=== PATIENT | male | born 1940 | race Caucasian/White ===

== ENCOUNTER → 2019-07-29 14:18 | Outpatient (BNVA) | payer MEDICARE, OTHER, SELFPAY | PROVIDERS: Family Provider Family Medicine; PCP Family Medicine; Visit Provider Urology | DX: R97.20 Elevated prostate specific antigen [PSA] (principal); N40.0 Benign prostatic hyperplasia without lower urinary tract symptoms; N39.9 Disorder of urinary system, unspecified; R33.9 Retention of urine, unspecified | CPT/HCPCS: 81001; 84153 ==

== ENCOUNTER → 2019-11-03 13:40 | Outpatient (BNVA) | payer MEDICARE, SELFPAY | PROVIDERS: Family Provider Family Medicine; PCP Family Medicine; Visit Provider Nurse Practitioner Family | DX: R97.20 Elevated prostate specific antigen [PSA] (principal); R33.9 Retention of urine, unspecified | CPT/HCPCS: 81001; 84153 ==

== ENCOUNTER 2019-12-16 09:04 | Outpatient (CLI) | payer MEDICARE, SELFPAY | END 2019-12-16 09:05 | disposition home or self-care (01) | LOC: LAB 09:10 | PROVIDERS: PCP Family Medicine; Visit Provider Urology | DX: R97.20 Elevated prostate specific antigen [PSA] (principal) | CPT/HCPCS: 36415; 81003; 84153 ==

== ENCOUNTER → 2020-03-17 10:59 | Outpatient (BNVA) | payer OTHER, SELFPAY | PROVIDERS: PCP Family Medicine; Visit Provider Urology | DX: R33.9 Retention of urine, unspecified (principal); R97.20 Elevated prostate specific antigen [PSA]; N40.2 Nodular prostate without lower urinary tract symptoms; N30.90 Cystitis, unspecified without hematuria | CPT/HCPCS: 81003 ==

== ENCOUNTER 2020-06-28 20:00 | Outpatient (CLI) | payer OTHER, SELFPAY | END 2020-06-28 20:01 | disposition home or self-care (01) | LOC: SLEEP 06-29 11:13 | PROVIDERS: PCP Family Medicine; Visit Provider Family Medicine | DX: G47.33 Obstructive sleep apnea (adult) (pediatric) (principal) | CPT/HCPCS: 95810 ==

== ENCOUNTER → 2020-07-13 09:57 | Outpatient (BNVA) | payer OTHER, SELFPAY | PROVIDERS: PCP Family Medicine; Visit Provider Urology | DX: R97.20 Elevated prostate specific antigen [PSA] (principal) | CPT/HCPCS: 84153 ==

== ENCOUNTER → 2020-11-21 08:37 | Outpatient (BNVA) | payer OTHER, SELFPAY | PROVIDERS: PCP Student in an Organized Health Care Education/Training Program; Referring Provider Emergency Medicine Emergency Medical Services; Visit Provider Internal Medicine | DX: E11.59 Type 2 diabetes mellitus with other circulatory complications (principal); E11.22 Type 2 diabetes mellitus with diabetic chronic kidney disease; N18.30 Chronic kidney disease, stage 3 unspecified; I25.10 Atherosclerotic heart disease of native coronary artery without angina pectoris; Z79.4 Long term (current) use of insulin; I12.9 Hypertensive chronic kidney disease with stage 1 through stage 4 chronic kidney disease, or unspecified chronic kidney disease; Z87.891 Personal history of nicotine dependence | CPT/HCPCS: 99204 ==

== ENCOUNTER 2020-11-24 10:25 | Outpatient (CLI) | payer OTHER, MEDICARE, SELFPAY | END 2020-11-24 10:26 | disposition home or self-care (01) | LOC: LAB 06-27 12:31 | PROVIDERS: PCP Student in an Organized Health Care Education/Training Program; Visit Provider Urology | DX: R97.20 Elevated prostate specific antigen [PSA] (principal) | CPT/HCPCS: 81003 ==

== ENCOUNTER 2021-06-27 11:55 | Outpatient (CLI) | payer OTHER, MEDICARE, SELFPAY | END 2021-06-27 11:56 | disposition home or self-care (01) | LOC: LAB 12:01 | PROVIDERS: PCP Student in an Organized Health Care Education/Training Program; Visit Provider Urology | DX: R97.20 Elevated prostate specific antigen [PSA] (principal); R33.9 Retention of urine, unspecified; N40.2 Nodular prostate without lower urinary tract symptoms; E11.59 Type 2 diabetes mellitus with other circulatory complications; I25.10 Atherosclerotic heart disease of native coronary artery without angina pectoris; E11.9 Type 2 diabetes mellitus without complications | CPT/HCPCS: 81003; 84153; 99214 ==

== ENCOUNTER 2021-10-05 10:19 | Outpatient (CLI) | payer OTHER, MEDICARE, SELFPAY | END 2021-10-05 10:20 | disposition home or self-care (01) | LOC: LAB 10:24 | PROVIDERS: PCP Student in an Organized Health Care Education/Training Program; Visit Provider Urology | DX: R97.20 Elevated prostate specific antigen [PSA] (principal); N39.0 Urinary tract infection, site not specified; R33.9 Retention of urine, unspecified; Z80.42 Family history of malignant neoplasm of prostate; E11.59 Type 2 diabetes mellitus with other circulatory complications; E11.22 Type 2 diabetes mellitus with diabetic chronic kidney disease; N18.30 Chronic kidney disease, stage 3 unspecified; I25.10 Atherosclerotic heart disease of native coronary artery without angina pectoris; Z79.4 Long term (current) use of insulin | CPT/HCPCS: 36415; 81003; 84153; 99213; 99214 ==

== ENCOUNTER → 2021-11-08 13:09 | Outpatient (BNVA) | payer OTHER, SELFPAY | PROVIDERS: PCP Student in an Organized Health Care Education/Training Program; Visit Provider Internal Medicine | DX: E11.9 Type 2 diabetes mellitus without complications (principal); E78.2 Mixed hyperlipidemia; Z79.4 Long term (current) use of insulin | CPT/HCPCS: 99214 ==

== ENCOUNTER 2022-02-19 12:39 | Outpatient (CLI) | payer OTHER, SELFPAY ==
[2022-02-19 13:46] LABS: Prostate Specific AG Urology 42.26 ng/mL (0-4)
== END 2022-02-19 12:40 | disposition home or self-care (01) ==
PROVIDERS: Urology; Visit Provider Nurse Practitioner Family
DX: R97.20 Elevated prostate specific antigen [PSA] (principal); N39.0 Urinary tract infection, site not specified; Z80.42 Family history of malignant neoplasm of prostate
CPT/HCPCS: 81003; 84153; 99214

== ENCOUNTER → 2022-03-02 09:37 | Outpatient (BNVA) | payer OTHER, SELFPAY | PROVIDERS: Visit Provider Urology | DX: R97.20 Elevated prostate specific antigen [PSA] (principal) | CPT/HCPCS: 55700; 76872; 76942; 88305; 96372 ==

== ENCOUNTER → 2022-03-09 10:34 | Outpatient (BNVA) | payer OTHER, SELFPAY | PROVIDERS: Visit Provider Internal Medicine | DX: E11.59 Type 2 diabetes mellitus with other circulatory complications (principal); I25.10 Atherosclerotic heart disease of native coronary artery without angina pectoris; N39.0 Urinary tract infection, site not specified; E78.2 Mixed hyperlipidemia; Z79.4 Long term (current) use of insulin | CPT/HCPCS: 99214 ==

== ENCOUNTER 2022-04-03 07:25 | Outpatient (CLI) | payer OTHER, SELFPAY ==
--- NOTE | 2022-04-03 07:35 | NM_ITS ---
WS: [id number] NUCLEAR MEDICINE BONE SCAN Radiopharmaceutical: 25.2 Tc-99m MDP mCi IV Injection site: AC Postinjection imaging delay: 1 hr CLINICAL INFORMATION: EQUITY RESEARCH ASSOCIATE COMPARISON: None. FINDINGS: Bone lesions: Punctate focus of increased activity involving the LEFT proximal humeral neck. No other suspicious foci of uptake. Soft tissue contours: Normal. Kidneys: Normal. 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 Degenerative arthr itis both knees. Mild thoracolumbar curve. NM/NM bone scan whole body* [id number] IMPRESSION: 1. Punctate focus of increased activity involving the LEFT proximal humeral ne ck. This may be degenerative but is indeterminate and metastatic disease not en tirely excluded. Recommend 3-6 month interval follow-up. 2. No other suspicious findings.
[2022-04-03] MEDS: iohexol 350 mg/mL 500 mL Btl (per mL) IV (07:52)
[2022-04-03 08:32] LABS: Blood Urea Nitrogen 25 mg/dL (8-23)
--- NOTE | 2022-04-03 09:15 | CT_ITS ---
WS: [id number] CT ABDOMEN PELVIS TECHNIQUE: Noncontrast CT of the abdomen and contrast-enhanced CT of the abdomen and pelvis with gisela nal and sagittal reformatted images. CLINICAL INFORMATION: PROSTATE CANCER COMPARISON: Outside CT December 07, 2021 DLP: 1562.[address] scans at [facility] use at least one of these dose optimization techniques: automated e xposure control; mA and/or kV adjustment per patient size (includes targeted exams where dose is matc hed to clinical indication); or iterative reconstruction. FINDINGS: Enlarged heterogeneously enhancing nodular prostate suspicious for neoplasia measuring 5.4 x 5.6 cm w ith indentation on the bladder. Bladder wall thickening compatible with bladder outlet obstruction. E nlarged eccentric LEFT diverticulum measuring 7.9 x 2.7 CM. Enlarged LEFT periprostatic lymph node me asuring 6 mm. Slight prominent presacral lymph noted measuring 5 mm. Prominent LEFT periaortic lymph nodes 2 largest measuring 13 mm. Additional shotty periaortic lymph nodes. Round atelectasis RIGHT lower lobe is unchanged from December 07, 2021. Lung bases are otherwise well aerated. Normal GE junction. Diffuse fatty infiltration liver. Cholecystectomy. Normal portal vein an d splenic vein. Fatty atrophy of the pancreas. Normal spleen. Dense aortic calcification. IVC filter. Tiny fat-containing LEFT inguinal hernia. Sigmoid diverticulosis. No evidence of acute diverticuliti s. Normal appendix in the RIGHT lower quadrant. Retroaortic LEFT renal vein. IVC filter. Anterior wed ging L1 with kyphoplasty changes. Ankylosis lower thoracic and lumbar spine. Normal renal parenchymal enhancement. RIGHT renal atrophy. Tiny renal cysts. Peripelvic cysts. Adrena l glands are normal. CT/CT abdomen pelvis wo/w [id number] IMPRESSION: 1. Enlarged heterogeneously enhancing nodular prostate suspicious for neoplasm . Thickening of the seminal vesicles bilaterally. 2. Bladder indentation with evidence of bladder outlet obstruction. 3. 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 4. Mild thickening of the seminal vesicles bilaterally. 5. Prominent LEFT periprostatic lymph node measuring 6 mm. Slight prominent pr esacral lymph noted measuring 5 mm. Enlarged LEFT periaortic lymph nodes 2 larg est measuring 13 mm. Additional shotty periaortic lymph nodes. 6. Diffuse fatty infiltration liver. Round atelectasis RIGHT lower lobe. 7. Atrophic RIGHT kidney. 8. IVC filter. 9. No other acute findings.
== END 2022-04-03 07:26 | disposition home or self-care (01) ==
LOC: RAD 07:29
PROVIDERS: Visit Provider Urology
DX: C61 Malignant neoplasm of prostate (principal); N32.3 Diverticulum of bladder; K76.0 Fatty (change of) liver, not elsewhere classified; J98.11 Atelectasis; N26.1 Atrophy of kidney (terminal)
CPT/HCPCS: 74178; 78306; 82565; 84520; A9561; Q9967

== ENCOUNTER → 2022-04-04 12:03 | Outpatient (BNVA) | payer OTHER, SELFPAY | PROVIDERS: PCP Family Medicine; Visit Provider Urology | DX: R33.9 Retention of urine, unspecified (principal); C61 Malignant neoplasm of prostate | CPT/HCPCS: 99214 ==

== ENCOUNTER 2022-04-09 07:51 | Oncology outpatient (recurring) (ONCR) | payer OTHER, SELFPAY | END 2022-04-10 23:59 | disposition home or self-care (01) | PROVIDERS: Absent Provider Radiology Radiation Oncology; PCP Family Medicine; Visit Provider Internal Medicine Hematology & Oncology | DX: C61 Malignant neoplasm of prostate (principal); N40.2 Nodular prostate without lower urinary tract symptoms; N13.8 Other obstructive and reflux uropathy; Z80.42 Family history of malignant neoplasm of prostate | CPT/HCPCS: 99204 ==

== ENCOUNTER 2022-05-01 09:28 | Oncology outpatient (recurring) (ONCR) | payer OTHER, SELFPAY ==
[2022-05-01 10:10] LABS: Basophils # 0.1 10^3/uL (0.0-0.1); Basophils % 1.1 %; Eosinophils # 0.2 10^3/uL (0.0-0.8); Eosinophils % 4.5 %; Hematocrit 44.6 % (42.0-52.0); Hemoglobin 14.8 g/dL (11.7-16.6); Lymphocytes # 1.5 10^3/uL (0.8-4.8); Lymphocytes % 27.8 %; Mean Corpuscular HGB Conc 33.2 g/dL (30.0-36.0); Mean Corpuscular Volume 93.3 fl (80-94); Mean Platelet Volume 9.8 fL (7.4-10.4); Monocytes # 0.5 10^3/uL (0.2-0.9); Monocytes % 8.8 %; Neutrophils # 3.09 10^3/uL (1.8-7.7); Neutrophils % 57.6 %; Nucleated Red Blood Cells % 0 %; Platelet Count 203 10^3/cmm (130-400); Red Blood Count 4.78 10^6/uL (4.1-5.3); Red Cell Distribution Width 12.5 % (12.1-15.1); White Blood Count 5.4 10^3/uL (4.0-10.0)
[2022-05-01 10:41] LABS: Alanine Aminotransferase 22 U/L (0-41); Alkaline Phosphatase 37 U/L (40-130); Anion Gap 16.6 (5-19); Aspartate Amino Transferase 19 U/L (0-40); Blood Urea Nitrogen 38 mg/dL (8-23); Calcium 9.3 mg/dL (8.5-10.5); Carbon Dioxide 23 mmol/L (22-29); Chloride 105 mmol/L (98-107); Glucose 173 mg/dL (65-115); Osmolality Calculated 303 mOsm/kg (285-295); Potassium 4.6 mmol/L (3.5-5.1); Sodium 140 mmol/L (136-145); Testosterone Total 172.6 ng/dL (193-740); Total Bilirubin 0.4 mg/dL (0.15-1.2)
== END 2022-05-11 23:59 | disposition home or self-care (01) ==
PROVIDERS: Absent Provider Radiology Radiation Oncology; PCP Family Medicine; Visit Provider Internal Medicine Hematology & Oncology
DX: C61 Malignant neoplasm of prostate; C77.8 Secondary and unspecified malignant neoplasm of lymph nodes of multiple regions; C79.51 Secondary malignant neoplasm of bone; R91.1 Solitary pulmonary nodule; Z79.818 Long term (current) use of other agents affecting estrogen receptors and estrogen levels; Z79.899 Other long term (current) drug therapy; Z87.891 Personal history of nicotine dependence
CPT/HCPCS: 36415; 80053; 84153; 84403; 85025; 99214

== ENCOUNTER 2022-05-21 14:18 | Oncology outpatient (recurring) (ONCR) | payer OTHER, SELFPAY ==
[2022-05-21] MEDS: leuprolide 22.5 mg Kit IM (14:44)
[2022-05-21] MEDS: denosumab 120 mg SDV SUBCUT (14:44)
[2022-05-21 15:00] VITALS: BP 116/65; PULSE 68; RESP 18; TEMP 36.8; O2SAT 99
== END 2022-06-10 23:59 | disposition home or self-care (01) ==
PROVIDERS: Absent Provider Radiology Radiation Oncology; PCP Family Medicine; Visit Provider Internal Medicine Hematology & Oncology
DX: C61 Malignant neoplasm of prostate (principal); Z51.11 Encounter for antineoplastic chemotherapy
CPT/HCPCS: 96372; 96402; J0897; J9217

== ENCOUNTER 2022-06-19 11:29 | Oncology outpatient (recurring) (ONCR) | payer OTHER, SELFPAY ==
[2022-06-19 12:21] LABS: Basophils # 0.1 10^3/uL (0.0-0.1); Eosinophils # 0.4 10^3/uL (0.0-0.8); Eosinophils % 8.4 %; Hematocrit 41.9 % (42.0-52.0); Lymphocytes # 1.3 10^3/uL (0.8-4.8); Lymphocytes % 26.8 %; Mean Corpuscular HGB Conc 33.4 g/dL (30.0-36.0); Mean Corpuscular Hemoglobin 31.3 pg (28.0-34.0); Mean Corpuscular Volume 93.7 fl (80-94); Mean Platelet Volume 9.7 fL (7.4-10.4); Monocytes # 0.6 10^3/uL (0.2-0.9); Monocytes % 12.3 %; Neutrophils # 2.44 10^3/uL (1.8-7.7); Neutrophils % 51.1 %; Nucleated Red Blood Cells % 0 %; Platelet Count 161 10^3/cmm (130-400); Red Blood Count 4.47 10^6/uL (4.1-5.3); Red Cell Distribution Width 12.2 % (12.1-15.1); White Blood Count 4.8 10^3/uL (4.0-10.0)
[2022-06-19 12:50] LABS: Alkaline Phosphatase 41 U/L (40-130); Blood Urea Nitrogen 37 mg/dL (8-23); Calcium 8.6 mg/dL (8.5-10.5); Carbon Dioxide 25 mmol/L (22-29); Chloride 102 mmol/L (98-107); Globulin 2.9 g/dL (1.3-4.6); Glucose 181 mg/dL (65-115); Osmolality Calculated 297 mOsm/kg (285-295); Sodium 137 mmol/L (136-145); Total Bilirubin 0.6 mg/dL (0.15-1.2); Total Protein 6.9 g/dL (6.6-8.7)
[2022-06-19 12:57] LABS: Alanine Aminotransferase 62 U/L (0-41); Anion Gap 15.1 (5-19); Aspartate Amino Transferase 43 U/L (0-40); Potassium 5.1 mmol/L (3.5-5.1)
[2022-06-19 13:19] LABS: Testosterone Total 25.7 ng/dL (193-740)
== END 2022-07-11 23:59 | disposition home or self-care (01) ==
PROVIDERS: Absent Provider Radiology Radiation Oncology; PCP Family Medicine; Visit Provider Internal Medicine Hematology & Oncology
DX: C61 Malignant neoplasm of prostate; C77.8 Secondary and unspecified malignant neoplasm of lymph nodes of multiple regions; C79.51 Secondary malignant neoplasm of bone; R74.01 Elevation of levels of liver transaminase levels; Z79.818 Long term (current) use of other agents affecting estrogen receptors and estrogen levels; Z79.899 Other long term (current) drug therapy
CPT/HCPCS: 36415; 80053; 84153; 84403; 85025; 99214

== ENCOUNTER 2022-09-04 13:00 | Oncology outpatient (recurring) (ONCR) | payer OTHER, SELFPAY ==
[2022-08-21 09:02] VITALS: BP 117/69; PULSE 62; RESP 16; TEMP 36.3; O2SAT 98
[2022-08-21 09:26] LABS: Basophils % 0.6 %; Eosinophils # 0.2 10^3/uL (0.0-0.8); Eosinophils % 3.2 %; Hematocrit 44.1 % (42.0-52.0); Hemoglobin 15.1 g/dL (11.7-16.6); Lymphocytes # 2.8 10^3/uL (0.8-4.8); Lymphocytes % 44.7 %; Mean Corpuscular HGB Conc 34.2 g/dL (30.0-36.0); Mean Corpuscular Hemoglobin 32.4 pg (28.0-34.0); Mean Corpuscular Volume 94.6 fl (80-94); Mean Platelet Volume 9.8 fL (7.4-10.4); Monocytes # 0.6 10^3/uL (0.2-0.9); Monocytes % 8.8 %; Neutrophils # 2.65 10^3/uL (1.8-7.7); Neutrophils % 42.5 %; Nucleated Red Blood Cells % 0 %; Platelet Count 221 10^3/cmm (130-400); Red Blood Count 4.66 10^6/uL (4.1-5.3); White Blood Count 6.2 10^3/uL (4.0-10.0)
[2022-08-21 11:08] LABS: Alanine Aminotransferase 30 U/L (0-41); Albumin Level 4.1 g/dL (3.5-5.2); Alkaline Phosphatase 45 U/L (40-130); Anion Gap 16.9 (5-19); Aspartate Amino Transferase 26 U/L (0-40); Blood Urea Nitrogen 46 mg/dL (8-23); Calcium 9.5 mg/dL (8.5-10.5); Carbon Dioxide 23 mmol/L (22-29); Chloride 102 mmol/L (98-107); Globulin 3.1 g/dL (1.3-4.6); Glucose 174 mg/dL (65-115); Osmolality Calculated 300 mOsm/kg (285-295); Potassium 4.9 mmol/L (3.5-5.1); Sodium 137 mmol/L (136-145); Testosterone Total 22.6 ng/dL (193-740); Total Bilirubin 0.4 mg/dL (0.15-1.2); Total Protein 7.2 g/dL (6.6-8.7)
[2022-08-21] MEDS: denosumab 120 mg SDV SUBCUT (11:34)
[2022-08-21] MEDS: leuprolide 22.5 mg Kit IM (11:35)
[2022-08-21 11:42] VITALS: BP 136/65; PULSE 63; RESP 16; TEMP 35.9; O2SAT 93
[2022-09-04 13:01] VITALS: BMI 33.5
[2022-09-04 13:04] VITALS: BP 106/66; PULSE 61; RESP 18; TEMP 36.2; O2SAT 95
[2022-09-04 13:58] LABS: Testosterone Total 13.8 ng/dL (193-740)
== END 2022-09-10 23:59 | disposition home or self-care (01) ==
PROVIDERS: Absent Provider Radiology Radiation Oncology; PCP Family Medicine; Visit Provider Internal Medicine Hematology & Oncology
DX: C61 Malignant neoplasm of prostate; C77.8 Secondary and unspecified malignant neoplasm of lymph nodes of multiple regions; C79.51 Secondary malignant neoplasm of bone; Z79.52 Long term (current) use of systemic steroids; Z79.818 Long term (current) use of other agents affecting estrogen receptors and estrogen levels; Z79.899 Other long term (current) drug therapy
CPT/HCPCS: 36415; 80053; 84153; 84403; 85025; 96372; 96402; 99214; J0897; J9217

== ENCOUNTER 2022-11-12 11:02 | Oncology outpatient (recurring) (ONCR) | payer OTHER, SELFPAY ==
[2022-11-12 11:05] VITALS: BP 125/73; PULSE 57; RESP 16; TEMP 36.2; O2SAT 95
[2022-11-12 11:18] LABS: Basophils % 0.2 %; Eosinophils # 0.2 10^3/uL (0.0-0.8); Hematocrit 46.3 % (37-53); Lymphocytes # 1.8 10^3/uL (0.8-4.8); Lymphocytes % 18.4 %; Mean Corpuscular HGB Conc 33.3 g/dL (30-55); Mean Corpuscular Hemoglobin 31.6 pg (27-33); Mean Corpuscular Volume 94.9 fl (82-101); Mean Platelet Volume 9.8 fL (7.4-10.4); Monocytes # 0.7 10^3/uL (0.2-0.9); Monocytes % 6.8 %; Neutrophils % 72.4 %; Nucleated Red Blood Cells % 0 %; Platelet Count 186 10^3/cmm (157-399); Red Blood Count 4.88 10^6/uL (3.85-5.65); Red Cell Distribution Width 12.3 % (12.1-15.1); White Blood Count 9.53 10^3/uL (3.29-11.43)
[2022-11-12 11:50] LABS: Alanine Aminotransferase 36 U/L (0-41); Albumin Level 4.1 g/dL (3.5-5.2); Alkaline Phosphatase 59 U/L (40-130); Anion Gap 14.6 (5-19); Aspartate Amino Transferase 30 U/L (0-40); Blood Urea Nitrogen 43 mg/dL (8-23); Calcium 9.6 mg/dL (8.5-10.5); Carbon Dioxide 26 mmol/L (22-29); Chloride 104 mmol/L (98-107); Globulin 2.8 g/dL (1.3-4.6); Glucose 165 mg/dL (65-115); Osmolality Calculated 305 mOsm/kg (285-295); Potassium 4.6 mmol/L (3.5-5.1); Sodium 140 mmol/L (136-145); Total Bilirubin 0.3 mg/dL (0.15-1.2); Total Protein 6.9 g/dL (6.6-8.7)
[2022-11-12] MEDS: denosumab 120 mg SDV SUBCUT (13:31)
[2022-11-12] MEDS: leuprolide 22.5 mg Kit IM (13:32)
[2022-11-12 13:35] VITALS: BP 123/56; PULSE 48; RESP 16; TEMP 36.1; O2SAT 97
== END 2022-12-11 23:59 | disposition home or self-care (01) ==
PROVIDERS: Internal Medicine Hematology & Oncology; Absent Provider Radiology Radiation Oncology; PCP Family Medicine; Visit Provider Internal Medicine Medical Oncology
DX: Z51.11 Encounter for antineoplastic chemotherapy (principal); C61 Malignant neoplasm of prostate; C79.51 Secondary malignant neoplasm of bone; Z79.899 Other long term (current) drug therapy
CPT/HCPCS: 36415; 80053; 84153; 84403; 85025; 96372; 96402; 99215; J0897; J9217

== ENCOUNTER 2023-02-05 12:19 | Oncology outpatient (recurring) (ONCR) | payer OTHER, SELFPAY ==
[2023-02-05 12:43] VITALS: BP 112/77; PULSE 62; RESP 16; TEMP 35.7; O2SAT 94
[2023-02-05 13:06] LABS: Basophils # 0.1 10^3/uL (0.0-0.1); Basophils % 0.7 %; Eosinophils # 0.2 10^3/uL (0.0-0.8); Hematocrit 45.4 % (37-53); Mean Corpuscular HGB Conc 33.7 g/dL (30-55); Mean Corpuscular Hemoglobin 31.2 pg (27-33); Mean Corpuscular Volume 92.7 fl (82-101); Mean Platelet Volume 9.2 fL (7.4-10.4); Monocytes # 0.7 10^3/uL (0.2-0.9); Monocytes % 8.7 %; Neutrophils % 36.3 %; Nucleated Red Blood Cells % 0 %; Platelet Count 170 10^3/cmm (157-399); Red Cell Distribution Width 13.8 % (12.1-15.1); White Blood Count 7.68 10^3/uL (3.29-11.43)
[2023-02-05 13:31] LABS: Alanine Aminotransferase 29 U/L (0-41); Albumin Level 4.3 g/dL (3.5-5.2); Alkaline Phosphatase 49 U/L (40-130); Anion Gap 15.2 (5-19); Aspartate Amino Transferase 20 U/L (0-40); Blood Urea Nitrogen 31 mg/dL (8-23); Calcium 9.8 mg/dL (8.5-10.5); Carbon Dioxide 26 mmol/L (22-29); Chloride 100 mmol/L (98-107); Globulin 3.2 g/dL (1.3-4.6); Glucose 146 mg/dL (65-115); Osmolality Calculated 293 mOsm/kg (285-295); Potassium 4.2 mmol/L (3.5-5.1); Sodium 137 mmol/L (136-145); Testosterone Total 17.1 ng/dL (193-740); Total Bilirubin 0.5 mg/dL (0.15-1.2); Total Protein 7.5 g/dL (6.6-8.7)
[2023-02-05] MEDS: denosumab 120 mg SDV SUBCUT (14:52)
[2023-02-05] MEDS: leuprolide 22.5 mg Kit IM (14:52)
== END 2023-02-10 23:59 | disposition home or self-care (01) ==
PROVIDERS: Internal Medicine Medical Oncology; Absent Provider Radiology Radiation Oncology; PCP Family Medicine; Visit Provider Internal Medicine Medical Oncology
DX: Z51.11 Encounter for antineoplastic chemotherapy (principal); C61 Malignant neoplasm of prostate; C79.51 Secondary malignant neoplasm of bone; Z79.899 Other long term (current) drug therapy
CPT/HCPCS: 36415; 80053; 84153; 84403; 85025; 96372; 96402; 99214; J0897; J9217

== ENCOUNTER 2023-02-12 07:36 | Outpatient (CLI) | payer OTHER, SELFPAY ==
--- NOTE | 2023-02-12 | PETR_ITS ---
PROCEDURE INFORMATION: Exam: PET/CT Skull Base to Mid-thigh Exam date and time: 02/12/2023 9:26 AM Age: 83 years old Clinical indication: Abnormal findings; Prominent left periprostatic lymph node measuring 6 mm. Slight prominent presacral lymph noted. Measuring 5 mm. Enlarged left periaortic lymph nodes 2 largest measuring 13 mm. Additional shotty. Periaortic lymph nodes. Patient HX: HX of prostate cancer; Additional info: Abnormal findings of lung field LABS AND CLINICAL REPORTS: Glucose: 174 mg/dl Treatment strategy for malignancy (PET staging): Initial Staging (PI) TECHNIQUE: Imaging protocol: Following at least four-hour fasting and following the injection of radiopharmaceutical, low dose CT images were obtained. Then, PET images were obtained. Attenuation corrected images were constructed using the CT scan. Fused images of PET and CT were reviewed. The standardized uptake values (SUV) reported below are maximum values within a region of interest, expressed in gm/ml. Exam includes orbital meatal line to mid-thigh. Radiopharmaceutical: 12.37 mCi F-18 FDG (Fluorodeoxyglucose), IV. Time of imaging post radiopharmaceutical administration: 1 hour Injection site: Left antecubital COMPARISON: CT abdomen and pelvis 04/03/2022, NM bone scan whole body* [id number] 04/03/2022 7:35 AM, CTA chest 11/17/2021 FINDINGS: Brain: Visualized brain has normal physiologic uptake. Paranasal sinuses: Extensive mucosal thickening in the sphenoid sinus on the left is noted and is not radiotracer avid consistent with chronic appearing benign sinus disease. Pharynx: No abnormal uptake. Larynx: No abnormal uptake. Lungs, pleura and trachea: No abnormal uptake. A similar non radiotracer avid ovoid solid lateral right upper lobe nodule measures 0.6 x 0.2 cm on series 3, image 85. There is an additional similar 3-4 mm non radiotracer avid solid nodule in the posterior right lower lobe on series 3, image 91. A pleural based soft tissue density nodule in the posterior right lower lobe is not radiotracer avid measuring 2.7 x 1.3 cm on series 3 image [address] of 04/03/2022 and 11/17/2021. A calcified granuloma in the lingula is present. No definite additional pulmonary nodules. Similar trace right pleural effusion. Heart: Normal physiologic uptake. Mediastinal space: No abnormal uptake. Liver: No abnormal uptake. Gallbladder and bile ducts: No abnormal uptake. Cholecystectomy clips are present. Pancreas: No abnormal uptake. Spleen: No abnormal uptake. Adrenal glands: No abnormal uptake. Kidneys and ureters: Normal physiologic uptake. Similar non radiotracer avid exophytic low-density structure arising posteriorly from the inferior pole of the right kidney consistent with a benign cyst on the prior CT of 04/03/2022. Similar mild to moderate relative atrophy of the right kidney. Stomach and bowel: No abnormal uptake. Urinary bladder: There is a similar large left urinary bladder diverticulum. No abnormal uptake. Reproductive: There is similar mild prominence of the prostate gland without elevated uptake. Vasculature: No abnormal uptake. There are diffuse atherosclerotic changes including within the coronary arteries. An inferior vena cava filter is noted. Lymph nodes: Radiotracer avid mediastinal and bilateral hilar lymph nodes are present it appears similar in size compared with 11/17/2021. A right precarinal lymph node measuring 1.7 x 1.1 cm on series 3, image 84 is noted, SUV max 3.0. Clustered mildly prominent left hilar lymph nodes demonstrated overall SUV max of 3.7. One of the largest lymph nodes in this region is noted anteriorly on series 3, image 88 measuring 1.7 x 1.1 cm. Uptake in the right hilar region demonstrates an SUV max 3.5 within lymph nodes measuring up to 1.3 cm on series 3, image 87. Similar mild prominence of a non radiotracer avid portacaval lymph node on series 3, image 142 measuring 2.0 x 0.9 cm. Previously noted mildly prominent left periaortic lymph nodes are no longer identified. A previously noted lymph node in the left periprosthetic region is no longer definitively identified. A previously noted slightly prominent presacral lymph node is no longer identified. No new lymphadenopathy. Bones/joints: No abnormal uptake in the visualized axial and appendicular skeleton. Degenerative changes in the spine are noted. A severe compression fracture is noted containing vertebroplasty cement at L1. No acute fracture is identified. Sternotomy wires are present. A rounded sclerotic density is not radiotracer avid in the inferior left glenoid measuring 9 mm on series 3, image 69 likely representing a benign bone island. Soft tissues: No abnormal uptake in the visualized head, neck, chest, abdomen, pelvis, and extremities. Mild non radiotracer avid bilateral gynecomastia is noted. METRICS: Mediastinal blood pool: SUV max 2.6 PET/PET skulltothigh INITIAL [id number] IMPRESSION: 1. Similar size of mildly prominent mediastinal and bilateral hilar lymph nodes compared with 11/17/2021 demonstrating elevated uptake.This may be reactive, secondary to infectious or inflammatory involvement. Malignant involvement cannot be excluded. 2. No evidence of radiotracer avid malignancy in the abdomen or pelvis. Interval resolution of previously noted mild prominence of lymph nodes in the left periaortic region, left periprosthetic region and presacral space. 3. Prominent appearance of the prostate gland without elevated uptake. Assessment of the prostate gland is limited by PET-CT. 4. Similar small nodules in the right lung and similar masslike nodularity involving the pleural surface of the posterior right lower lobe without elevated uptake, unchanged since at least 11/17/2021. 5. No evidence of radiotracer avid lesion in the proximal left humerus to correspond to the small focus of uptake noted on the comparison nuclear medicine bone scan. 6. Additional nonurgent findings as detailed above.
== END 2023-02-12 07:37 | disposition home or self-care (01) ==
LOC: RAD 07:41
PROVIDERS: Family Provider Internal Medicine Medical Oncology; PCP Family Medicine; Visit Provider Family Medicine
DX: R91.8 Other nonspecific abnormal finding of lung field (principal); Z85.46 Personal history of malignant neoplasm of prostate; R59.0 Localized enlarged lymph nodes
CPT/HCPCS: 78815; A9552

== ENCOUNTER 2023-03-11 08:04 | Oncology outpatient (recurring) (ONCR) | payer OTHER, SELFPAY ==
[2023-03-11 08:15] VITALS: BP 132/65; PULSE 56; TEMP 35.6; O2SAT 97
[2023-03-11 08:30] LABS: Basophils % 0.5 %; Eosinophils # 0.1 10^3/uL (0.0-0.8); Eosinophils % 1.3 %; Hematocrit 43.1 % (37-53); Lymphocytes # 2.8 10^3/uL (0.8-4.8); Lymphocytes % 34.6 %; Mean Corpuscular HGB Conc 33.4 g/dL (30-55); Mean Corpuscular Hemoglobin 31.2 pg (27-33); Mean Corpuscular Volume 93.5 fl (82-101); Mean Platelet Volume 9.1 fL (7.4-10.4); Monocytes # 0.7 10^3/uL (0.2-0.9); Monocytes % 8.8 %; Neutrophils # 4.47 10^3/uL (1.8-7.7); Neutrophils % 54.6 %; Nucleated Red Blood Cells % 0 %; Platelet Count 165 10^3/cmm (157-399); Red Blood Count 4.61 10^6/uL (3.85-5.65); White Blood Count 8.19 10^3/uL (3.29-11.43)
[2023-03-11 09:07] LABS: Alanine Aminotransferase 23 U/L (0-41); Albumin Level 4.1 g/dL (3.5-5.2); Alkaline Phosphatase 56 U/L (40-130); Anion Gap 16.5 (5-19); Aspartate Amino Transferase 18 U/L (0-40); Blood Urea Nitrogen 49 mg/dL (8-23); Calcium 9.9 mg/dL (8.5-10.5); Carbon Dioxide 26 mmol/L (22-29); Chloride 100 mmol/L (98-107); Creatinine Clr Calc Pharmacy 35.1947; Globulin 3.3 g/dL (1.3-4.6); Glucose 211 mg/dL (65-115); Osmolality Calculated 305 mOsm/kg (285-295); Potassium 4.5 mmol/L (3.5-5.1); Sodium 138 mmol/L (136-145); Total Bilirubin 0.6 mg/dL (0.15-1.2); Total Protein 7.4 g/dL (6.6-8.7)
== END 2023-03-13 23:59 | disposition home or self-care (01) ==
LOC: ONCMED 08:05
PROVIDERS: Nurse Practitioner Family; Absent Provider Radiology Radiation Oncology; Family Provider Internal Medicine Medical Oncology; PCP Family Medicine; Visit Provider Internal Medicine Medical Oncology
DX: Z51.11 Encounter for antineoplastic chemotherapy (principal); C61 Malignant neoplasm of prostate; C79.51 Secondary malignant neoplasm of bone; Z79.899 Other long term (current) drug therapy
CPT/HCPCS: 36415; 80053; 84153; 85025; 99214

== ENCOUNTER 2023-04-30 10:42 | Oncology outpatient (recurring) (ONCR) | payer OTHER, SELFPAY ==
[2023-04-30 11:10] LABS: Basophils % 0.4 %; Eosinophils # 0.1 10^3/uL (0.0-0.8); Eosinophils % 2.6 %; Lymphocytes # 2.5 10^3/uL (0.8-4.8); Lymphocytes % 50.9 %; Mean Corpuscular HGB Conc 33.3 g/dL (30-55); Mean Corpuscular Hemoglobin 30.8 pg (27-33); Mean Corpuscular Volume 92.7 fl (82-101); Mean Platelet Volume 9.8 fL (7.4-10.4); Monocytes # 0.3 10^3/uL (0.2-0.9); Monocytes % 6.6 %; Neutrophils # 1.94 10^3/uL (1.8-7.7); Neutrophils % 39.1 %; Nucleated Red Blood Cells % 0 %; Platelet Count 190 10^3/cmm (157-399); Red Blood Count 4.96 10^6/uL (3.85-5.65); Red Cell Distribution Width 12.5 % (12.1-15.1); White Blood Count 4.97 10^3/uL (3.29-11.43)
[2023-04-30 11:36] LABS: Alanine Aminotransferase 20 U/L (0-41); Alkaline Phosphatase 51 U/L (40-130); Anion Gap 13.7 (5-19); Aspartate Amino Transferase 19 U/L (0-40); Blood Urea Nitrogen 29 mg/dL (8-23); Calcium 9.2 mg/dL (8.5-10.5); Carbon Dioxide 27 mmol/L (22-29); Chloride 103 mmol/L (98-107); Globulin 2.8 g/dL (1.3-4.6); Glucose 154 mg/dL (65-115); Osmolality Calculated 299 mOsm/kg (285-295); Potassium 3.7 mmol/L (3.5-5.1); Prostate Specific Antigen 0.066 ng/mL (0-4); Sodium 140 mmol/L (136-145); Total Bilirubin 0.6 mg/dL (0.15-1.2); Total Protein 6.8 g/dL (6.6-8.7)
[2023-04-30] MEDS: denosumab 120 mg SDV SUBCUT (12:53)
[2023-04-30] MEDS: leuprolide 22.5 mg Kit IM (12:54)
[2023-04-30 12:58] VITALS: BP 134/59; PULSE 68; RESP 16; TEMP 36.4; O2SAT 96
[2023-04-30 14:07] LABS: Testosterone Total < 2.5 ng/dL (193-740)
== END 2023-05-12 23:59 | disposition home or self-care (01) ==
PROVIDERS: Nurse Practitioner Family; Absent Provider Radiology Radiation Oncology; Family Provider Internal Medicine Medical Oncology; PCP Family Medicine; Visit Provider Internal Medicine Medical Oncology
DX: Z51.11 Encounter for antineoplastic chemotherapy (principal); C61 Malignant neoplasm of prostate; C79.51 Secondary malignant neoplasm of bone; Z79.899 Other long term (current) drug therapy
CPT/HCPCS: 36415; 80053; 84153; 84403; 85025; 96372; 96402; 99214; J0897; J9217

== ENCOUNTER 2023-07-31 10:26 | Oncology outpatient (recurring) (ONCR) | payer OTHER, SELFPAY ==
[2023-07-31 10:43] LABS: Basophils # 0.1 10^3/uL (0.0-0.1); Basophils % 0.7 %; Eosinophils # 0.3 10^3/uL (0.0-0.8); Eosinophils % 3.7 %; Hematocrit 44.7 % (37-53); Lymphocytes # 2.8 10^3/uL (0.8-4.8); Lymphocytes % 41.2 %; Mean Corpuscular HGB Conc 32.9 g/dL (30-55); Mean Corpuscular Hemoglobin 31.8 pg (27-33); Mean Corpuscular Volume 96.8 fl (82-101); Mean Platelet Volume 9.3 fL (7.4-10.4); Monocytes # 0.7 10^3/uL (0.2-0.9); Monocytes % 9.7 %; Neutrophils # 3.03 10^3/uL (1.8-7.7); Neutrophils % 44.6 %; Nucleated Red Blood Cells % 0 %; Platelet Count 170 10^3/cmm (157-399); Red Blood Count 4.62 10^6/uL (3.85-5.65); Red Cell Distribution Width 12.7 % (12.1-15.1)
[2023-07-31 11:15] LABS: Alanine Aminotransferase 101 U/L (0-41); Alkaline Phosphatase 46 U/L (40-130); Anion Gap 15.3 (5-19); Aspartate Amino Transferase 60 U/L (0-40); Blood Urea Nitrogen 47 mg/dL (8-23); Calcium 9.5 mg/dL (8.5-10.5); Carbon Dioxide 27 mmol/L (22-29); Chloride 101 mmol/L (98-107); Globulin 3.1 g/dL (1.3-4.6); Glucose 164 mg/dL (65-115); Osmolality Calculated 304 mOsm/kg (285-295); Potassium 4.3 mmol/L (3.5-5.1); Sodium 139 mmol/L (136-145); Testosterone Total 2.5 ng/dL (193-740); Total Bilirubin 0.6 mg/dL (0.15-1.2); Total Protein 7.1 g/dL (6.6-8.7)
[2023-07-31] MEDS: leuprolide 22.5 mg Kit IM (13:27)
[2023-07-31] MEDS: denosumab 120 mg SDV SUBCUT (13:27)
== END 2023-08-11 23:59 | disposition home or self-care (01) ==
PROVIDERS: Absent Provider Radiology Radiation Oncology; Family Provider Internal Medicine Medical Oncology; PCP Family Medicine; Visit Provider Internal Medicine Medical Oncology
DX: Z51.11 Encounter for antineoplastic chemotherapy (principal); C61 Malignant neoplasm of prostate; C79.51 Secondary malignant neoplasm of bone; Z79.899 Other long term (current) drug therapy; Z79.818 Long term (current) use of other agents affecting estrogen receptors and estrogen levels
CPT/HCPCS: 36415; 80053; 84153; 84403; 85025; 96372; 96402; 99214; J0897; J9217

== ENCOUNTER 2023-10-23 10:54 | Oncology outpatient (recurring) (ONCR) | payer OTHER, SELFPAY ==
[2023-10-23 11:32] LABS: Basophils % 0.6 %; Eosinophils # 0.1 10^3/uL (0.0-0.8); Hematocrit 45.2 % (37-53); Lymphocytes # 1.8 10^3/uL (0.8-4.8); Lymphocytes % 24.4 %; Mean Corpuscular HGB Conc 34.3 g/dL (30-55); Mean Corpuscular Hemoglobin 32.3 pg (27-33); Mean Corpuscular Volume 94.2 fl (82-101); Mean Platelet Volume 9.6 fL (7.4-10.4); Monocytes # 0.6 10^3/uL (0.2-0.9); Monocytes % 8.6 %; Neutrophils % 65.1 %; Nucleated Red Blood Cells % 0 %; Platelet Count 160 10^3/cmm (157-399); Red Cell Distribution Width 12.4 % (12.1-15.1); White Blood Count 7.21 10^3/uL (3.29-11.43)
[2023-10-23 11:58] LABS: Alanine Aminotransferase 57 U/L (0-41); Albumin Level 3.9 g/dL (3.5-5.2); Alkaline Phosphatase 75 U/L (40-130); Anion Gap 14.6 (5-19); Aspartate Amino Transferase 35 U/L (0-40); Blood Urea Nitrogen 43 mg/dL (8-23); Carbon Dioxide 28 mmol/L (22-29); Chloride 100 mmol/L (98-107); Globulin 2.7 g/dL (1.3-4.6); Glucose 188 mg/dL (65-115); Osmolality Calculated 302 mOsm/kg (285-295); Potassium 4.6 mmol/L (3.5-5.1); Prostate Specific Antigen 0.017 ng/mL (0-4); Sodium 138 mmol/L (136-145); Testosterone Total 2.5 ng/dL (193-740); Total Bilirubin 0.6 mg/dL (0.15-1.2); Total Protein 6.6 g/dL (6.6-8.7)
[2023-10-23] MEDS: denosumab 120 mg SDV SUBCUT (13:40)
[2023-10-23] MEDS: leuprolide 22.5 mg Kit IM (13:41)
== END 2023-11-11 23:59 | disposition home or self-care (01) ==
PROVIDERS: Nurse Practitioner Family; Absent Provider Radiology Radiation Oncology; Family Provider Internal Medicine Medical Oncology; PCP Family Medicine; Visit Provider Internal Medicine Medical Oncology
DX: Z51.11 Encounter for antineoplastic chemotherapy (principal); C61 Malignant neoplasm of prostate; C79.51 Secondary malignant neoplasm of bone; Z79.899 Other long term (current) drug therapy
CPT/HCPCS: 36415; 80053; 84153; 84403; 85025; 96402; 99214; J0897; J9217

== ENCOUNTER 2024-01-15 12:37 | Oncology outpatient (recurring) (ONCR) | payer OTHER, SELFPAY ==
[2024-01-15 13:25] LABS: Basophils # 0.1 10^3/uL (0.0-0.1); Basophils % 0.7 %; Eosinophils # 0.1 10^3/uL (0.0-0.8); Hematocrit 44.4 % (37-53); Lymphocytes # 2.1 10^3/uL (0.8-4.8); Lymphocytes % 20.1 %; Mean Corpuscular HGB Conc 34.7 g/dL (30-55); Mean Corpuscular Hemoglobin 33.6 pg (27-33); Mean Corpuscular Volume 96.9 fl (82-101); Mean Platelet Volume 9.7 fL (7.4-10.4); Monocytes # 0.8 10^3/uL (0.2-0.9); Monocytes % 7.9 %; Neutrophils # 7.47 10^3/uL (1.8-7.7); Nucleated Red Blood Cells % 0 %; Platelet Count 189 10^3/cmm (157-399); Red Blood Count 4.58 10^6/uL (3.85-5.65); Red Cell Distribution Width 11.9 % (12.1-15.1); White Blood Count 10.66 10^3/uL (3.29-11.43)
[2024-01-15 13:55] LABS: Alanine Aminotransferase 46 U/L (0-41); Albumin Level 4.1 g/dL (3.5-5.2); Alkaline Phosphatase 66 U/L (40-130); Aspartate Amino Transferase 35 U/L (0-40); Blood Urea Nitrogen 52 mg/dL (8-23); Carbon Dioxide 25 mmol/L (22-29); Chloride 93 mmol/L (98-107); Creatinine Clr Calc Pharmacy 36.3766; Globulin 3.2 g/dL (1.3-4.6); Glucose 278 mg/dL (65-115); Osmolality Calculated 300 mOsm/kg (285-295); Sodium 133 mmol/L (136-145); Total Bilirubin 0.5 mg/dL (0.15-1.2); Total Protein 7.3 g/dL (6.6-8.7)
[2024-01-15 14:00] LABS: Prostate Specific Antigen < 0.014 ng/mL (0-4)
[2024-01-15 14:22] LABS: Testosterone Total 2.5 ng/dL (193-740)
[2024-01-15] MEDS: leuprolide 22.5 mg Kit IM (14:49)
[2024-01-15] MEDS: denosumab 120 mg SDV SUBCUT (14:50)
== END 2024-02-11 23:59 | disposition home or self-care (01) ==
PROVIDERS: Nurse Practitioner Family; Absent Provider Radiology Radiation Oncology; Family Provider Internal Medicine Medical Oncology; PCP Family Medicine; Visit Provider Internal Medicine Medical Oncology
DX: Z51.11 Encounter for antineoplastic chemotherapy (principal); C61 Malignant neoplasm of prostate; C79.51 Secondary malignant neoplasm of bone; Z79.899 Other long term (current) drug therapy
CPT/HCPCS: 36415; 80053; 84153; 84403; 85025; 96372; 96402; 99214; J0897; J9217

== ENCOUNTER → 2024-04-06 14:33 | Outpatient (BNVA) | payer OTHER, SELFPAY | PROVIDERS: Family Provider Internal Medicine Medical Oncology; PCP Family Medicine; Visit Provider Nurse Practitioner Family | DX: L72.0 Epidermal cyst (principal); L98.8 Other specified disorders of the skin and subcutaneous tissue; L81.4 Other melanin hyperpigmentation; D48.5 Neoplasm of uncertain behavior of skin; L57.0 Actinic keratosis | CPT/HCPCS: 11102; 17000; 99203 ==

== ENCOUNTER 2024-04-08 11:28 | Oncology outpatient (recurring) (ONCR) | payer OTHER, SELFPAY ==
[2024-04-08 12:03] LABS: Basophils % 0.6 %; Eosinophils # 0.2 10^3/uL (0.0-0.8); Eosinophils % 2.9 %; Hematocrit 45.6 % (37-53); Lymphocytes # 1.8 10^3/uL (0.8-4.8); Lymphocytes % 26.3 %; Mean Corpuscular HGB Conc 33.3 g/dL (30-55); Mean Corpuscular Hemoglobin 32.3 pg (27-33); Monocytes # 0.5 10^3/uL (0.2-0.9); Monocytes % 6.7 %; Neutrophils # 4.34 10^3/uL (1.8-7.7); Neutrophils % 63.4 %; Nucleated Red Blood Cells % 0 %; Platelet Count 227 10^3/cmm (157-399); Red Cell Distribution Width 12.6 % (12.1-15.1); White Blood Count 6.85 10^3/uL (3.29-11.43)
[2024-04-08 12:21] LABS: Alanine Aminotransferase 43 U/L (0-41); Albumin Level 3.8 g/dL (3.5-5.2); Alkaline Phosphatase 47 U/L (40-130); Anion Gap 15.6 (5-19); Aspartate Amino Transferase 35 U/L (0-40); Blood Urea Nitrogen 39 mg/dL (8-23); Calcium 9.3 mg/dL (8.5-10.5); Carbon Dioxide 28 mmol/L (22-29); Chloride 101 mmol/L (98-107); Creatinine Clr Calc Pharmacy 45.8108; Globulin 3.2 g/dL (1.3-4.6); Glucose 213 mg/dL (65-115); Osmolality Calculated 306 mOsm/kg (285-295); Potassium 4.6 mmol/L (3.5-5.1); Sodium 140 mmol/L (136-145); Total Bilirubin 0.4 mg/dL (0.15-1.2)
[2024-04-08 12:47] LABS: Prostate Specific Antigen < 0.014 ng/mL (0-4); Testosterone Total < 2.5 ng/dL (193-740)
[2024-04-08] MEDS: leuprolide 22.5 mg Kit IM (13:56)
[2024-04-08] MEDS: denosumab 120 mg SDV SUBCUT (13:56)
== END 2024-04-10 23:59 | disposition home or self-care (01) ==
LOC: ONCMED 11:29
PROVIDERS: Internal Medicine Medical Oncology; Absent Provider Radiology Radiation Oncology; Family Provider Internal Medicine Medical Oncology; PCP Family Medicine; Visit Provider Internal Medicine Medical Oncology
DX: Z51.11 Encounter for antineoplastic chemotherapy (principal); C61 Malignant neoplasm of prostate; C79.51 Secondary malignant neoplasm of bone; Z79.899 Other long term (current) drug therapy; Z79.818 Long term (current) use of other agents affecting estrogen receptors and estrogen levels; Z79.52 Long term (current) use of systemic steroids
CPT/HCPCS: 36415; 80053; 84153; 84403; 85025; 96372; 96402; 99214; J0897; J9217

== ENCOUNTER → 2024-06-04 11:08 | Outpatient (BNVA) | payer OTHER, SELFPAY | PROVIDERS: Family Provider Internal Medicine Medical Oncology; PCP Family Medicine; Visit Provider Nurse Practitioner Family | DX: S50.911A Unspecified superficial injury of right forearm, initial encounter (principal); L72.0 Epidermal cyst; L98.8 Other specified disorders of the skin and subcutaneous tissue; L81.4 Other melanin hyperpigmentation; D48.5 Neoplasm of uncertain behavior of skin; L57.0 Actinic keratosis; X58.XXXA Exposure to other specified factors, initial encounter | CPT/HCPCS: 17000; 69100; 99213 ==

== ENCOUNTER → 2024-06-30 08:36 | Outpatient (BNVA) | payer MEDICAID, SELFPAY | PROVIDERS: Family Provider Internal Medicine Medical Oncology; PCP Family Medicine; Visit Provider Dermatology | DX: L57.0 Actinic keratosis (principal); C44.222 Squamous cell carcinoma of skin of right ear and external auricular canal | CPT/HCPCS: 17282; 99214 ==

== ENCOUNTER 2024-07-10 08:51 | Oncology outpatient (recurring) (ONCR) | payer OTHER, SELFPAY ==
[2024-07-01 14:12] LABS: Basophils % 0.6 %; Eosinophils # 0.2 10^3/uL (0.0-0.8); Eosinophils % 2.4 %; Hematocrit 45.7 % (37-53); Lymphocytes # 1.9 10^3/uL (0.8-4.8); Lymphocytes % 30.5 %; Mean Corpuscular Hemoglobin 32.1 pg (27-33); Mean Corpuscular Volume 97.2 fl (82-101); Mean Platelet Volume 9.7 fL (7.4-10.4); Monocytes # 0.7 10^3/uL (0.2-0.9); Neutrophils # 3.46 10^3/uL (1.8-7.7); Neutrophils % 55.3 %; Nucleated Red Blood Cells % 0 %; Platelet Count 177 10^3/cmm (157-399); Red Cell Distribution Width 12.9 % (12.1-15.1); White Blood Count 6.26 10^3/uL (3.29-11.43)
[2024-07-01 14:40] LABS: Alanine Aminotransferase 25 U/L (0-41); Albumin Level 3.5 g/dL (3.5-5.2); Alkaline Phosphatase 55 U/L (40-130); Anion Gap 15.1 (5-19); Aspartate Amino Transferase 25 U/L (0-40); Blood Urea Nitrogen 40 mg/dL (8-23); Calcium 9.5 mg/dL (8.5-10.5); Carbon Dioxide 25 mmol/L (22-29); Chloride 102 mmol/L (98-107); Creatinine Clr Calc Pharmacy 39.6553; Globulin 3.1 g/dL (1.3-4.6); Glucose 263 mg/dL (65-115); Osmolality Calculated 305 mOsm/kg (285-295); Potassium 4.1 mmol/L (3.5-5.1); Sodium 138 mmol/L (136-145); Total Bilirubin 0.4 mg/dL (0.15-1.2); Total Protein 6.6 g/dL (6.6-8.7)
[2024-07-01 14:41] LABS: Prostate Specific Antigen < 0.014 ng/mL (0-4); Testosterone Total < 2.5 ng/dL (193-740)
[2024-07-01] MEDS: leuprolide 22.5 mg Kit IM (16:26)
== END 2024-07-11 23:59 | disposition home or self-care (01) ==
PROVIDERS: PCP Family Medicine; Visit Provider Nurse Practitioner
DX: Z53.9 Procedure and treatment not carried out, unspecified reason (principal)
CPT/HCPCS: 36415; 80053; 84153; 84403; 85025; 96402; 99214; J9217

== ENCOUNTER 2024-07-27 19:47 | Emergency (ER) | payer OTHER, MEDICARE, MEDICAID, SELFPAY ==
[2024-07-27 19:48] VITALS: BP 115/57; PULSE 53; RESP 14; TEMP 36.7; O2SAT 96; BMI 30.7
--- NOTE | 2024-07-27 19:48 | XRR_ITS ---
PROCEDURE INFORMATION: Exam: XR Chest Exam date and time: 07/27/2024 7:57 PM Age: 84 years old Clinical indication: Shortness of breath; Prior surgery; Surgery date: 6+ months; Surgery type: Coronary stent, cabg; Additional info: SOB TECHNIQUE: Imaging protocol: Radiologic exam of the chest. Views: 1 view. COMPARISON: CT angio chest w abd pel w con 08/20/2021 18:42 FINDINGS: Lungs: There is no evidence of focal pulmonary consolidation. Pleural spaces: No pleural effusion or pneumothorax. Heart/Mediastinum: Normal in size. Vasculature: There is atherosclerotic calcification of the thoracic aorta. Bones/joints: There has been a median sternotomy for coronary revascularization. XR/XR chest 1V portable [id number] IMPRESSION: 1. No acute findings. 2. Status post CABG.
--- NOTE | 2024-07-27 19:56 | ECG_ITS ---
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 Measurements Intervals [place] Rate: 61 P: 71 TX: 205 QRS: 68 QRSD: 105 T: 70 QT: 443 QTc: 447 Interpretive Statements SINUS RHYTHM WITH OCCASIONAL VENTRICULAR PREMATURE COMPLEXES No previous ECG available for comparison Electronically Signed On 07-27-2024 21:49:29 CDT by Reinier Tilley M.D. [email or web address] [id number]
[2024-07-27 21:15] LABS: Basophils # 0.1 10^3/uL (0.0-0.1); Basophils % 0.9 %; Eosinophils # 0.4 10^3/uL (0.0-0.8); Eosinophils % 6.4 %; Hematocrit 41.4 % (37-53); Lymphocytes % 30.3 %; Mean Corpuscular HGB Conc 33.1 g/dL (30-55); Mean Corpuscular Hemoglobin 32.2 pg (27-33); Mean Corpuscular Volume 97.4 fl (82-101); Mean Platelet Volume 10.2 fL (7.4-10.4); Monocytes # 0.7 10^3/uL (0.2-0.9); Monocytes % 10.8 %; Neutrophils # 3.44 10^3/uL (1.8-7.7); Neutrophils % 51.2 %; Nucleated Red Blood Cells % 0 %; Platelet Count 199 10^3/cmm (157-399); Red Blood Count 4.25 10^6/uL (3.85-5.65); Red Cell Distribution Width 12.6 % (12.1-15.1); White Blood Count 6.73 10^3/uL (3.29-11.43)
[2024-07-27 21:49] LABS: Alanine Aminotransferase 23 U/L (0-41); Albumin Level 3.5 g/dL (3.5-5.2); Alkaline Phosphatase 59 U/L (40-130); Anion Gap 18.5 (5-19); Aspartate Amino Transferase 23 U/L (0-40); Blood Urea Nitrogen 37 mg/dL (8-23); Calcium 8.8 mg/dL (8.5-10.5); Carbon Dioxide 24 mmol/L (22-29); Chloride 100 mmol/L (98-107); Globulin 2.8 g/dL (1.3-4.6); Glucose 160 mg/dL (65-115); Magnesium 2.3 mg/dL (1.7-2.3); NT Pro B Type Natriuretic Pept 3394 pg/mL (0-450); Osmolality Calculated 298 mOsm/kg (285-295); Potassium 4.5 mmol/L (3.5-5.1); Sodium 138 mmol/L (136-145); Thyroid Stimulating Hormone 4.42 uIU/mL (0.27-4.20); Total Bilirubin 0.4 mg/dL (0.15-1.2); Total Protein 6.3 g/dL (6.6-8.7)
== END 2024-07-27 22:49 | disposition left against medical advice (07) ==
PROVIDERS: Emergency Medicine; Emergency Provider Family Medicine; PCP Family Medicine
DX: I49.8 Other specified cardiac arrhythmias (principal); I49.3 Ventricular premature depolarization; R06.02 Shortness of breath; Z95.1 Presence of aortocoronary bypass graft; Z53.21 Procedure and treatment not carried out due to patient leaving prior to being seen by health care provider
CPT/HCPCS: 36415; 71045; 80053; 83735; 83880; 84443; 85025; 93005; 99285

== ENCOUNTER → 2024-07-28 10:59 | Outpatient (BNVA) | payer OTHER, SELFPAY | PROVIDERS: PCP Family Medicine; Referring Provider Nurse Practitioner Family; Visit Provider Internal Medicine Cardiovascular Disease | DX: I25.10 Atherosclerotic heart disease of native coronary artery without angina pectoris (principal); I13.0 Hypertensive heart and chronic kidney disease with heart failure and stage 1 through stage 4 chronic kidney disease, or unspecified chronic kidney disease; E11.22 Type 2 diabetes mellitus with diabetic chronic kidney disease; N18.30 Chronic kidney disease, stage 3 unspecified; R00.1 Bradycardia, unspecified; I50.32 Chronic diastolic (congestive) heart failure; R55 Syncope and collapse; I73.9 Peripheral vascular disease, unspecified; E78.2 Mixed hyperlipidemia; I77.9 Disorder of arteries and arterioles, unspecified | CPT/HCPCS: 99205 ==

== ENCOUNTER → 2024-08-03 09:43 | Outpatient (BNVA) | payer OTHER, SELFPAY | PROVIDERS: PCP Family Medicine; Visit Provider Internal Medicine Cardiovascular Disease | DX: R00.1 Bradycardia, unspecified (principal); R55 Syncope and collapse | CPT/HCPCS: 93244; 93246 ==

== ENCOUNTER 2024-08-06 12:45 | Oncology outpatient (recurring) (ONCR) | payer OTHER, SELFPAY ==
--- NOTE | 2024-07-31 09:00 | PETR_ITS ---
PROCEDURE INFORMATION: Exam: PET/CT Skull Base to Mid-thigh Exam date and time: 07/31/2024 11:25 AM Age: 84 years old Clinical indication: Condition or disease; Primary cancer: Prostate cancer; Prior surgery; Surgery date: 6+ months; Surgery type: Cabg; Additional info: Followup prostate cancer last imaging 02/2023. LABS AND CLINICAL REPORTS: Glucose: 177 mg/dl Treatment strategy for malignancy (PET staging): Restaging (PS) TECHNIQUE: Imaging protocol: Following at least four-hour fasting and following the injection of radiopharmaceutical, low dose CT images were obtained. Then, PET images were obtained. Attenuation corrected images were constructed using the CT scan. Fused images of PET and CT were reviewed. The standardized uptake values (SUV) reported below are maximum values within a region of interest, expressed in gm/ml. Exam includes orbital meatal line to mid-thigh. SUV normalization method: BodyWeight Radiopharmaceutical: 12.6 mCi F-18 FDG (Fluorodeoxyglucose), IV. Time of imaging post radiopharmaceutical administration: 55 minutes Injection site: left ac COMPARISON: 1. CT abdomen pelvis wo/w [id number] 04/03/2022 8:23 AM 2. PT PET skull to thigh INIT [id number] 02/12/2023 9:26 AM FINDINGS: Brain: Visualized brain has normal physiologic uptake. Pharynx: No abnormal uptake. Larynx: No abnormal uptake. Lungs, pleura and trachea: No abnormal uptake. Small bilateral pleural effusions and mild adjacent atelectasis. Lingular calcified granuloma. Heart: Normal physiologic uptake. Coronary arteries: Heavy coronary artery calcification. Prior CABG. Mediastinal space: No abnormal uptake. Diaphragm: Small hiatal hernia. Liver: No abnormal uptake. Gallbladder and biliary ducts: No abnormal uptake. Prior cholecystectomy. Pancreas: No abnormal uptake. Spleen: No abnormal uptake. Adrenal glands: No abnormal uptake. Kidneys and ureters: Normal physiologic uptake. Stable right renal atrophy. Stable photopenic right renal cyst. Stomach and bowel: No abnormal uptake. Colonic diverticulosis without findings of diverticulitis. Urinary bladder: Stable large left urinary bladder diverticulum. Normal size prostate without abnormal uptake. Vasculature: No abnormal uptake. Heavy systemic atherosclerotic calcification without aortic aneurysm. Infrarenal IVC filter in place. Lymph nodes: Increased FDG uptake at stably nonenlarged mediastinal and bilateral hilar lymph nodes, index lower right paratracheal node showing SUV max 10.0 on axial image 86 (previously 3.0), right hilar SUV max 5.3 on axial image 90 (previously 3.5), and left hilar SUV max 8.7 on axial image 92 (previously 3.7). Skeleton: No abnormal uptake in the visualized axial and appendicular skeleton. Chronic augmented anterior wedge compression deformity of the L1 vertebral body. Degenerative change along the axial skeletal system and shoulders. No aggressive osteolytic or blastic lesion. Couple of foci of FDG avidity at the midline and rightward mandible in keeping with reported recent tooth extraction. Soft tissues: No abnormal uptake in the visualized head, neck, chest, abdomen, pelvis, and extremities. Small fat containing left inguinal hernia. METRICS: Mediastinal blood pool: SUV mean 2.2 Liver uptake: SUV 2.7 PET/PET skull to thigh SUBS [id number] IMPRESSION: 1. Normal size prostate without abnormal uptake. 2. Increased FDG uptake at stably nonenlarged mediastinal and bilateral hilar lymph nodes favored to be benign, malignancy not entirely excluded. 3. Small bilateral pleural effusions with mild adjacent atelectasis. 4. Additional chronic and incidental findings as above.
--- NOTE | 2024-08-05 | ECG_ITS ---
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 Interpretive Statements LEXISCAN SESTAMIBI STRESS TEST Procedure: At the baseline, the blood pressure was 145/50 mmHg with a heart rate of 67 bpm. The electrocardiogram showed normal sinus rhythm, normal axis with normal ST and T's. The Lexiscan was infused over a period of 20 seconds. A total of 0.4 mg of Lexiscan was infused. The stress phase was continued for a total of 5 minutes. Heart rate was at the end of stress phase was 82 bpm and a blood pressure of 126/47 mmHg. The EKG at the peak infusion revealed normal sinus rhythm with no significant ST-T wave changes. Sestamibi was injected 20 seconds after the Lexiscan infusion. Blood pressure at the end of recovery phase was 114/46 mmHg with a heart rate of 79 bpm. Conclusion: 1. Normal EKG response to Lexiscan infusion 2. No Lexiscan induced chest pain or cardiac arrhythmia. 3. Normal blood pressure and heart rate response. 4. Sestamibi/sestamibi perfusion scan pending; see separate report. Electronically Signed On 08-22-2024 13:33:33 CDT by Wayne Monge M.D. [email or web address] [id number]
[2024-08-05 09:46] VITALS: BMI 30.7
--- NOTE | 2024-08-05 09:48 | NMCV_ITS ---
NM paul perf SPECT r/s* [id number] Valencia, Jake Age: 84 Gender: M : 1940 Exam Date: 08/05/2024 10:21 Ordering Phys: Reinier Tilley MD ([email or web address]) Technologist: DIAMOND Munoz Exam Location: [facility] Indications: cp STRESS TEST [facility] IMAGE PROTOCOL Rest/Stress 1 Lexiscan Day Radiopharmaceutical Dose (mCi) Administration Site Administered by Rest: Tc-99m 10.3 IV DIAMOND Munoz Sestamibi Stress:Tc-99m 32.8 IV Hannah Foote, CONTROL SYSTEMS ENG Sestamibi Rest: 05-Aug-2024 60 Discovery 630 Stress: 05-Aug-2024 30 Discovery 630 0.4mg Lexiscan. Images obtained in supine and prone position. SPECT RESULTS Technical Quality: Good Raw Data Analysis: Normal Image Corrections: No attenuation or motion correction applied Summed Stress Score: 1 Summed Rest Score: 0 Summed Difference Score: 1 PERFUSION FINDINGS SPECT images demonstrate homogeneous tracer distribution throughout the myocardium. FUNCTIONAL RESULTS (calculated via Gated SPECT) Stress Image LV EF (%): 74 Stress EDV (mL):81 TID: 0.95 Stress ESV (mL):21 FUNCTIONAL FINDINGS: There is normal left ventricular systolic function. IMPRESSIONS 1. Normal myocardial perfusion imaging with no evidence of ischemia. 2. LV systolic function is normal. Wayne Monge MD (Electronically Signed) Final Date: 08 August 2024 12:18 S
[2024-08-05] MEDS: regadenoson 0.4 Mg/5 ml Syringe IVP (10:46)
[2024-08-05 11:02] VITALS: BP 114/46; PULSE 77
--- NOTE | 2024-08-06 12:45 | USR_ITS ---
PROCEDURE INFORMATION: Exam: US Duplex Bilateral Lower Extremity Arteries Exam date and time: 08/06/2024 12:56 PM Age: 84 years old Clinical indication: Screening exam; Weakness; Additional info: Leg weakness TECHNIQUE: Imaging protocol: Real-time ultrasound scan of the arteries of the bilateral lower extremities with 2-D silveira scale, color Doppler flow and spectral waveform analysis. Images documented and saved. COMPARISON: CT angio chest w abd pel w con 11/17/2021 6:42 PM FINDINGS: Right common femoral artery: No occlusion or significant stenosis. Normal waveform. Right superficial femoral artery: No occlusion or significant stenosis. Normal waveform. Right popliteal artery: No occlusion or significant stenosis. Normal waveform. Right calf/foot arteries: No occlusion or significant stenosis in the visualized arteries. Normal waveforms. Dorsalis pedis artery is patent. Right SUSHMA 1.3. Left common femoral artery: No occlusion or significant stenosis. Normal waveform. Left superficial femoral artery: No occlusion or significant stenosis. Normal waveform. Left popliteal artery: No occlusion or significant stenosis. Normal waveform. Left calf/foot arteries: No occlusion or significant stenosis in the visualized arteries. Normal waveforms. Dorsalis pedis artery is patent. Left SUSHMA 1.3. US/CV arterial duplex [facility] [id number] IMPRESSION: No stenosis or occlusion.
== END 2024-08-10 23:59 | disposition home or self-care (01) ==
LOC: RAD 08-07 → ONCMED 08-12 13:09
PROVIDERS: PCP Family Medicine; Visit Provider Nurse Practitioner
DX: Z51.11 Encounter for antineoplastic chemotherapy (principal); C61 Malignant neoplasm of prostate; C79.51 Secondary malignant neoplasm of bone; Z79.899 Other long term (current) drug therapy; I73.9 Peripheral vascular disease, unspecified
CPT/HCPCS: 36415; 78452; 78815; 93017; 93925; 96374; A9500; A9552; J2785

== ENCOUNTER 2024-09-30 13:10 | Oncology outpatient (recurring) (ONCR) | payer OTHER, SELFPAY ==
[2024-09-30 13:49] LABS: Hematocrit 43.6 % (37-53); Hemoglobin 15.00 g/dL (11.27-16.99); Mean Corpuscular HGB Conc 34.4 g/dL (30-55); Mean Corpuscular Hemoglobin 32.4 pg (27-33); Mean Corpuscular Volume 94.2 fl (82-101); Nucleated Red Blood Cells % 0 %; Platelet Count 199 10^3/cmm (157-399); Red Blood Count 4.63 10^6/uL (3.85-5.65); White Blood Count 8.46 10^3/uL (3.29-11.43)
[2024-09-30 14:15] LABS: Alanine Aminotransferase 24 U/L (0-41); Albumin Level 3.9 g/dL (3.5-5.2); Alkaline Phosphatase 60 U/L (40-130); Anion Gap 16.6 (5-19); Aspartate Amino Transferase 20 U/L (0-40); Blood Urea Nitrogen 35 mg/dL (8-23); Calcium 9.2 mg/dL (8.5-10.5); Carbon Dioxide 23 mmol/L (22-29); Chloride 102 mmol/L (98-107); Creatinine Clr Calc Pharmacy 54.8370; Globulin 2.9 g/dL (1.3-4.6); Glucose 199 mg/dL (65-115); Osmolality Calculated 298 mOsm/kg (285-295); Potassium 4.6 mmol/L (3.5-5.1); Sodium 137 mmol/L (136-145); Total Protein 6.8 g/dL (6.6-8.7)
[2024-09-30 14:23] LABS: Prostate Specific Antigen < 0.014 ng/mL (0-4)
[2024-09-30] MEDS: denosumab 120 mg SDV SUBCUT (15:09)
[2024-09-30] MEDS: leuprolide 22.5 mg Kit IM (15:10)
== END 2024-10-11 23:59 | disposition home or self-care (01) ==
PROVIDERS: PCP Family Medicine; Visit Provider Nurse Practitioner Family
DX: Z51.11 Encounter for antineoplastic chemotherapy (principal); C61 Malignant neoplasm of prostate; C79.51 Secondary malignant neoplasm of bone; Z79.899 Other long term (current) drug therapy; Z87.891 Personal history of nicotine dependence; Z79.818 Long term (current) use of other agents affecting estrogen receptors and estrogen levels
CPT/HCPCS: 36415; 80053; 84153; 84403; 85025; 96372; 96402; 99214; J0897; J9217

== ENCOUNTER 2024-10-02 10:22 | Outpatient (CLI) | payer OTHER, SELFPAY | END 2024-10-02 10:23 | LOC: RAD 10-07 07:41 | PROVIDERS: PCP Family Medicine; Visit Provider Internal Medicine Cardiovascular Disease | DX: I25.10 Atherosclerotic heart disease of native coronary artery without angina pectoris (principal); R55 Syncope and collapse; I13.0 Hypertensive heart and chronic kidney disease with heart failure and stage 1 through stage 4 chronic kidney disease, or unspecified chronic kidney disease; E11.22 Type 2 diabetes mellitus with diabetic chronic kidney disease; N18.30 Chronic kidney disease, stage 3 unspecified; I50.32 Chronic diastolic (congestive) heart failure; Z79.4 Long term (current) use of insulin; E78.2 Mixed hyperlipidemia; I73.9 Peripheral vascular disease, unspecified; R00.1 Bradycardia, unspecified; I71.40 Abdominal aortic aneurysm, without rupture, unspecified; Z79.02 Long term (current) use of antithrombotics/antiplatelets; Z79.82 Long term (current) use of aspirin; Z95.5 Presence of coronary angioplasty implant and graft; Z87.891 Personal history of nicotine dependence; I77.9 Disorder of arteries and arterioles, unspecified; R06.09 Other forms of dyspnea; I65.23 Occlusion and stenosis of bilateral carotid arteries | CPT/HCPCS: 99214 ==

== ENCOUNTER 2024-12-30 11:07 | Oncology outpatient (recurring) (ONCR) | payer OTHER, SELFPAY ==
[2024-12-30 11:28] LABS: Hematocrit 48.2 % (37-53); Hemoglobin 16.30 g/dL (11.27-16.99); Mean Corpuscular HGB Conc 33.8 g/dL (30-55); Mean Corpuscular Hemoglobin 32.3 pg (27-33); Mean Corpuscular Volume 95.6 fl (82-101); Nucleated Red Blood Cells % 0 %; Platelet Count 163 10^3/cmm (157-399); Red Blood Count 5.04 10^6/uL (3.85-5.65); White Blood Count 11.71 10^3/uL (3.29-11.43)
[2024-12-30 11:57] LABS: Alanine Aminotransferase 25 U/L (0-41); Albumin Level 3.9 g/dL (3.5-5.2); Alkaline Phosphatase 61 U/L (40-130); Anion Gap 16.0 (5-19); Aspartate Amino Transferase 21 U/L (0-40); Blood Urea Nitrogen 47 mg/dL (8-23); Calcium 9.0 mg/dL (8.5-10.5); Carbon Dioxide 31 mmol/L (22-29); Chloride 98 mmol/L (98-107); Globulin 3.2 g/dL (1.3-4.6); Glucose 249 mg/dL (65-115); Osmolality Calculated 313 mOsm/kg (285-295); Potassium 4.0 mmol/L (3.5-5.1); Sodium 141 mmol/L (136-145); Total Protein 7.1 g/dL (6.6-8.7)
[2024-12-30 12:01] LABS: Prostate Specific Antigen < 0.014 ng/mL (0-4)
[2024-12-30] MEDS: denosumab 120 mg SDV (Infusion Clinic Only) SUBCUT (13:28)
[2024-12-30] MEDS: leuprolide 22.5 mg Kit IM (13:29)
== END 2025-01-10 23:59 | disposition home or self-care (01) ==
PROVIDERS: PCP Family Medicine; Visit Provider Nurse Practitioner Family
DX: Z51.11 Encounter for antineoplastic chemotherapy (principal); C61 Malignant neoplasm of prostate; C79.51 Secondary malignant neoplasm of bone; Z79.899 Other long term (current) drug therapy; Z87.891 Personal history of nicotine dependence; Z79.818 Long term (current) use of other agents affecting estrogen receptors and estrogen levels; Z79.52 Long term (current) use of systemic steroids
CPT/HCPCS: 36415; 80053; 84153; 84403; 85025; 96372; 96402; 99213; J0897; J9217